=== PATIENT | female | born 1955 | race Caucasian/White ===

== ENCOUNTER 2017-06-12 22:45 | Emergency (ER) | payer SELFPAY ==
[~2017-06-12] VITALS: Ht 163.8 cm; Wt 67.3 kg
[~2017-06-12 22:45] MED LIST: DULO30CA50 PO; GABA-502 PO; WARF5TAB7 PO; WARF7.5T4 PO
--- NOTE | 2017-06-12 22:50 | ED.REPORT ---
HPI-Hip/Pelvis Prob/Inj Date of Service Jun 12, 2017 ED Provider: Dr. Cardenas Pt is a 61 year old female with a hx of left hip surgery and dislocation presenting to the ED via EMS complaining of left hip pain onset just prior to arrival when she bent down to paint her toenails. Denies any fever, chills, nausea, vomiting, SOB or wheezing. Nursing Notes Stated Complaint: L HIP PAIN Chief Complaint: L hip pain Nursing Notes Reviewed: Yes Allergies: Coded Allergies: Adhesives (Verified Allergy, Intermediate, rash, 03/31/15) erythromycin base (Verified Allergy, Unknown, 03/30/15) nickel (Verified Allergy, Unknown, 03/31/15) Uncoded Allergies: lactobionate (Allergy, Unknown, 03/30/15) Scheduled Duloxetine (Duloxetine) 30 Mg Capsule.dr 30 MG PO DAILY Gabapentin (Gabapentin) 300 Mg Capsule 900 MG PO TID Warfarin Sodium (Warfarin Sodium) 5 Mg Tablet 5 MG PO ,, Warfarin Sodium (Warfarin Sodium) 7.5 Mg Tablet 7.5 MG PO [facility] General Time Seen by Provider: 22:50 Chief Complaint Hip injury left Hx Obtained From: Patient, EMS Arrived By: Ambulance Onset Occurred: Just prior to arrival Symptom Duration: Since onset Progression Since Onset: Constant Past Medical History Past Medical History Osteoarthritis Diverticulitis GERD Hx of DVTs Past Surgical History Left hip prosthetic Reports: Tonsillectomy Smoking History Former Smoker Social History Alcohol Use: Denies alcohol use Drug Use: Denies drug use Ambulatory Status Independent Review of Systems Constitutional: Denies: Chills, Fever Musculoskeletal: Reports: Joint pain (left hip) Complete sys rev & neg: except as marked. Respiratory: Denies: Shortness of breath, Wheezing GI: Denies: Nausea, Vomiting Physical Exam Initial Vital Signs Vital Signs (First) Date Time Temp Pulse Resp B/P Pulse Ox O2 Delivery O2 Flow Rate FiO2 06/12/17 23:00 36.5 88 16 148/88 Room Air 06/13/17 01:16 97 Initial VS: Reviewed General/Constitutional: Well-developed, Well-nourished Head / Eyes: Atraumatic, Normocephalic, PERRL Neck: Full range of motion Respiratory: No respiratory distress Cardiovascular: Intact distal pulses Abdomen / GI: Soft, Non-tender, No guarding, No rebound, No distention Upper Extremities: Vascular intact, Neuro intact, No swelling, No tenderness Skin: Warm, Dry, No cyanosis Neurologic: Alert, Oriented, Nonfocal Psychiatric: Mood/affect normal, Behavior normal, Normal thought content Lower Extremity / Pelvis / MS: Neurologic intact, Vascular intact Left hip is obviously dislocated ENT: Atraumatic, Airway patent, Mucous membranes moist, Pharynx NL Mallampati 1 Interpretation & Diagnostics ECG Interpretation Time: 23:03 Interpreted by: ED physician Normal ECG Interpretation: Normal ECG w/ rate of... (83), Normal rate, Normal sinus rhythm X-Ray Interpretation Xray Interpretation: Dislocated rotated hip with prosthetic. Post Reduction: Reduced left hip. X-Ray Ordered: Hip left Interpretation / Wet Read by: Wet read ED physician Procedures Proced Mod Sedation/Analgesia 80 mg Propofol Time: 23:44 Procedure Performed by: ED physician Sedation Time: 10 - 15 min Consent / Setup: Informed consent provided, Consent from patient, Time-out performed, Hand hygiene observed, Position supine Indication: Hip reduction Preparation: insurance investigator applied, Pulse oximeter applied, Constant attendance, IV access established, Eval last meal time, Supplemental oxygen, Procedure explained, Suction available, End tidal CO2 mon applied VS Prior to Procedure: All vital signs normal Mallampati: Class & Anatomy: 1 tonsils/uvula/s palate Airway Exam: Normal facial anatomy CVS/Resp Exam: Normal breath sounds Neuro Exam: Alert Sedation: Sedation: Propofol ASA Classification: 1 normal healthy patient Response During Procedure: Handled secretions adeq, Maintained airway well, Oxygenation stable, Sedation appropriate, Vital signs stable Complications During/After: None Reversal: None required Mental Status After Procedure: Alert Post-Procedure: Alert prior to discharge Attestation: I performed procedure, I performed sedation Reduction Post Dislocation Hip Time: 23:45 Procedure Performed by: ED physician Consent / Timeout / Setup: Consent from patient, Time-out performed, Oxygen administered, Pulse oximeter applied, insurance investigator applied, Hand hygiene observed, Stand sterile technique Procedural Sedation/Analgesia: Sedation: Propofol Which Hip and Technique: Left hip Neurovascular: Intact pre-procedure, Intact post-procedure Post-Procedure / Complications: Reduced per examination, Procedure successful, X-ray disloc reduced, Condition improved, Tolerated procedure well, Patient stable Re-Eval/Medical Decision Med Decision/Clinical Course 61-year-old with prosthetic hip, and dislocation by hyperflexion bending over to do her nails home. Reduced here without much difficulty. Discharged in stable condition. Orthopedist supplied brace applied. Follow-up with orthopedist. Re-Evaluation/Progress #1: Time of Eval: 23:29 Patient Status: Condition improved Re-Evaluation/Progress Note: Informed of radiology results and plan for reduction. Risks and benefits of procedural sedation discussed. Re-Evaluation/Progress #2: Time of Eval: 23:35 Patient Status: Condition improved Re-Evaluation/Progress Note: Pt understands and consents to procedure. Re-Evaluation/Progress #3: Time of Eval: 23:43 Patient Status: Condition improved Re-Evaluation/Progress Note: Performed procedural sedation and dislocation reduction. Pt tolerated procedure well. Re-Evaluation/Progress #4: Time of Eval: 00:43 Patient Status: Condition improved Re-Evaluation/Progress Note: Pt back at baseline. She feels much better and is ready to go home. Discussed plan for discharge. Counseled Regarding: Diagnosis, Lab results, Need for follow-up, When/why to return to ED Discharge & Departure Impression: Primary Impression: Hip dislocation, left Encounter type: initial encounter Qualified Code: S73.005A - Unspecified dislocation of left hip, initial encounter Disposition: Home Discharge Condition All VS Reviewed: Yes Condition: Improved Patient Instructions: Hip Dislocation (ED) Additional Instructions: Where your brace to prevent dislocation. Follow-up with your orthopedic surgeon. Return if any immediate issues. Referrals: Familia Zapata DO (PCP) Boo Attestation Portions of this note were transcribed by Keesha Nathan. I, Dr. Cardenas personally performed the history, physical exam and medical decision-making; I reviewed and confirmed the accuracy of the information in the transcribed note. Signed by: Boo Luna, 06/12/2017. copies to: Familia Zapata Christopher W MD Jun 12, 2017 22:50 KEESHA NATHAN Jun 12, 2017 22:54
[2017-06-12] MEDS ORDERED: 0.9% Sodium Chloride 1,000 ML IV ONE (22:54)
[2017-06-12] MEDS ORDERED: Propofol 10 mg/mL 20 mL Inj IVPUSH ONE (22:55)
[2017-06-12 23:00] VITALS: BP 148/88; PULSE 88; RESP 16
[2017-06-12] MEDS ORDERED: fentaNYL-PF 50 mCg/mL 2 mL Inj IVPUSH ONE (23:40)
[2017-06-13 01:16] VITALS: BP 122/74; PULSE 78; RESP 14; O2SAT 97
--- NOTE | 2017-06-13 07:52 | DRSVH ---
PROCEDURE: X-RAY LEFT HIP COMPLETE, MINIMUM TWO VIEWS ([id number]) INDICATIONS: HIP SUBLUX TECHNIQUE: 2 view(s) of the hip acquired. COMPARISON: [facility], , HIP COMP MIN 2VW (LT), 11/19/2014, 15:39. FINDINGS: Bones: Left total hip arthroplasty with superior dislocation of the femoral component. Osteopenia. No definite periprosthetic fractures. Soft tissues: No suspicious soft tissue densities. IMPRESSION: Superiorly dislocated left total hip arthroplasty. Dictated by: Blake Townsend M.D. on 06/13/2017 at 7:49 Approved by: Blake Townsend M.D. on 06/13/2017 at 7:51
--- NOTE | 2017-06-13 07:53 | DRSVH ---
PROCEDURE: X-RAY LEFT HIP, ONE VIEW ([id number]) INDICATIONS: POST REDUCTION LEFT HIP TECHNIQUE: Single view of the hip were acquired. COMPARISON: None. FINDINGS: Bones: Interval relocation of a left total hip arthroplasty on a single frontal view only. Osteopenia . No periprosthetic fractures. Soft tissues: No suspicious soft tissue calcifications or masses. IMPRESSION: Interval relocation of left total hip arthroplasty with single frontal view only obtained . Osteopenia. No periprosthetic fractures. Dictated by: Blake Townsend M.D. on 06/13/2017 at 7:51 Approved by: Blake Townsend M.D. on 06/13/2017 at 7:52
== END 2017-06-13 01:19 | disposition home or self-care (01) ==
LOC: SED 22:45
DX: T84.021A Dislocation of internal left hip prosthesis, initial encounter (principal); X50.1XXA Overexertion from prolonged static or awkward postures, initial encounter; Y93.89 Activity, other specified; Y92.009 Unspecified place in unspecified non-institutional (private) residence as the place of occurrence of the external cause; Y99.8 Other external cause status; K21.9 Gastro-esophageal reflux disease without esophagitis; Z86.718 Personal history of other venous thrombosis and embolism; Z87.891 Personal history of nicotine dependence; Z79.01 Long term (current) use of anticoagulants; Z88.1 Allergy status to other antibiotic agents
CPT/HCPCS: 27265; 73501; 73502; 93005; 94770; 96361; 96374; 99152; 99285; J2704; J3010; J7030